=== PATIENT | male | born 1970 | race Hispanic/Latino ===

== ENCOUNTER 2017-08-31 02:54 | Emergency (ER) | payer BC ==
[2017-08-31] MEDS ORDERED: Lidocaine 2% PF 5 ML VIAL ONE (04:28)
[2017-08-31] MEDS ORDERED: Lidocaine 1% w/Epinephrine 1:100K 20 ML VIAL ONE (04:29)
[2017-08-31] MEDS ORDERED: Bacitracin Zinc 1 Packet ONE (05:06)
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
== END 2017-08-31 05:40 | disposition home or self-care (01) ==
LOC: ERS 02:54
DX: S01.81XA Laceration without foreign body of other part of head, initial encounter (principal); S00.83XA Contusion of other part of head, initial encounter; F10.129 Alcohol abuse with intoxication, unspecified; Z71.6 Tobacco abuse counseling; F32.9 Major depressive disorder, single episode, unspecified; F41.9 Anxiety disorder, unspecified; Z79.899 Other long term (current) drug therapy; F17.210 Nicotine dependence, cigarettes, uncomplicated; Y04.8XXA Assault by other bodily force, initial encounter
CPT/HCPCS: 12011; 70450; 70486; 99406; J2001

== ENCOUNTER 2019-10-23 13:15 | Emergency (ER) | payer BC ==
[2019-10-23] MEDS ORDERED: Ciprofloxacin HCL/Dexameth Otic Drops 7.5 ml Bottle ONE ×2 (15:00→15:05)
== END 2019-10-23 15:49 | disposition home or self-care (01) ==
LOC: ERS 13:15
DX: H60.92 Unspecified otitis externa, left ear (principal); H72.92 Unspecified perforation of tympanic membrane, left ear; F41.9 Anxiety disorder, unspecified; F32.9 Major depressive disorder, single episode, unspecified; F17.210 Nicotine dependence, cigarettes, uncomplicated; Z79.899 Other long term (current) drug therapy
CPT/HCPCS: 99282

== ENCOUNTER 2020-01-20 13:53 | Outpatient (CLI) | payer BC ==
--- NOTE | 2020-01-20 15:09 | MRI ---
MR of the left shoulder without contrast INDICATION: Left shoulder pain. Left shoulder impingement syndrome TECHNIQUE: Sagittal T1, axial and coronal PD fat sat, sagittal and coronal T2 fat sat images were obt ained of the left shoulder. COMPARISON: Left shoulder radiograph dated November 29, 2019 FINDINGS: Rotator cuff: There is mild tendinosis of the supraspinatus and infraspinatus. There is mild tendinos is of the subscapularis. No full-thickness tear is evident. No muscular atrophy is demonstrated. Glenohumeral joint: Articular cartilage is intact. Glenoid labrum: Intact Biceps tendon and biceps anchor: There is prominent tendinosis involving the intra-articular long hea d of the biceps tendon. There is a partial-thickness split tear that involves the long head of the biceps tendon at the level of the superior humeral head extends into the bicipital groove. Acromion clavicular joint: There is mild AC joint osteoarthrosis. There is inferior projecting osteop hyte off the distal clavicle at induces mild encroachment on the subjacent supraspinatus musculotendinous junction. Subacromial subdeltoid space: No appreciable fluid. Axillary region: No lymphadenopathy. Surrounding shoulder musculature: Normal. No evidence of atrophy or strain. IMPRESSION: 1. Mild AC joint osteoarthrosis with inferior projecting osteophyte off the distal left clavicle nancy cing mild encroachment on the subjacent supraspinatus muscular tendinous junction. 2. Mild supraspinatus, infraspinatus and subscapularis tendinosis. No full-thickness rotator cuff tea r is identified. 3. Prominent tendinosis of the intra-articular long head of the biceps tendon with a partial-thicknes s split tear.
--- NOTE | 2020-01-20 15:31 | MRI ---
MRI OF THE RIGHT SHOULDER PERFORMED WITHOUT CONTRAST ENHANCEMENT: 01/20/20 HISTORY: Right shoulder pain. Some moderate arthrosis of the AC joint. The acromion is slightly laterally downsloping. There is a small focal higher grade undersurface tear at the far anterior insertion of the supraspina tus tendon. There are very few thin bursal sided fibers still intact. This is a small focal tear. It measures approximately 7 mm in maximum AP dimension. Infraspinatus tendon is intact. There are some t endinosis changes and some undersurface signal change in the anterior fibers which could represent a low grade undersurface tear. The subscapularis muscle and tendon are intact. Biceps tendon is normal in position within the bicipi celsa groove. The bicipital labral complex is normal. Inferior glenohumeral ligament and labral complex is normal. IMPRESSION: 1. High grade small focal far anterior supraspinatus tendon tear measuring approximately 7 to 8 mm in AP dimension. Undersurface fibers are essentially nonretracted. There is thin outer bursal fibe rs present. 2. Tendinosis of the infraspinatus tendon. There is probably some undersurface fraying and a low grade tear of the anterior fibers. 3. Moderate arthrosis of the AC joint. POS: [facility]
== END 2020-01-20 13:54 | disposition home or self-care (01) ==
LOC: BICMRI 13:53
PROVIDERS: ATTEND Orthopaedic Surgery
DX: M75.41 Impingement syndrome of right shoulder (principal); M75.42 Impingement syndrome of left shoulder; M75.101 Unspecified rotator cuff tear or rupture of right shoulder, not specified as traumatic; M19.011 Primary osteoarthritis, right shoulder; S46.811A Strain of other muscles, fascia and tendons at shoulder and upper arm level, right arm, initial encounter; M19.012 Primary osteoarthritis, left shoulder

== ENCOUNTER 2020-03-18 01:41 | Emergency (ER) | payer BC ==
[2020-03-18 01:55] LABS: #Basophils 0.1 thou/uL (0.0-0.2); #Lymphocytes 3.2 thou/uL (1.20-3.40); #Monocytes 1.1 thou/uL (0.11-0.59); #Neutrophils 10.7 thou/uL (1.40-6.50); %Basophils 0.5 % (0.0-1.0); %Eosinophils 0.2 % (0.0-10.0); %Monocytes 7.1 % (0.0-10.0); %Neutrophils 71.2 % (42.0-75.0); Hemoglobin 15.4 g/dL (14.0-18.0); Mean Corpuscular Hemoglobin 31.8 pg (27.0-31.0); Mean Corpuscular Volume 99.2 fL (78.0-98.0); Mean Platelet Volume 7.6 fL (7.4-10.4); Platelet Count 307 thou/uL (130-400); RBC Distribution Width 12.3 % (11.5-14.5); Red Blood Cell (RBC) Count 4.84 mill/uL (4.70-6.10); White Blood Cell (WBC) Count 15.1 thou/uL (4.8-10.8)
[2020-03-18 02:07] LABS: INR-International Normal Ratio 1.2; PTT 34.6 sec (22.9-36.1); Prothrombin Time 15.6 sec (12.0-14.7)
[2020-03-18 02:09] LABS: ALT (SGPT) 112 U/L (8-55); AST (SGOT) 110 U/L (5-34); Albumin 4.4 g/dL (3.5-5.0); Alkaline Phosphatase 95 U/L (40-110); Anion Gap 34 mmol/L (10-20); BUN (Urea Nitrogen) 20 mg/dL (8.9-20.6); Bilirubin, Total 0.3 mg/dL (0.2-1.2); Calc. Creatinine Clearance 0 mL/min (70-130); Carbon Dioxide 14 mmol/L (22-29); Chloride 104 mmol/L (98-107); Globulin 3.3 g/dL (2.4-3.5); Glucose 171 mg/dL (70-105); Protein, Total 7.7 g/dL (6.0-8.3); Sodium 147 mmol/L (136-145)
[2020-03-18 02:31] LABS: Lactic Acid 15.4 mmol/L (0.5-2.2)
[2020-03-18] MEDS ORDERED: EPINEPHrine 1 MG/10 ML Abboject SYRINGE ONE (09:30)
== END 2020-03-18 01:52 | disposition expired ==
LOC: ERS 01:41
DX: T71.162A Asphyxiation due to hanging, intentional self-harm, initial encounter (principal); F17.210 Nicotine dependence, cigarettes, uncomplicated
CPT/HCPCS: 31500; 80053; 83605; 85025; 85610; 85730; 86850; 86900; 86901; 92950; 94760; 96374; G0390; J0171